=== PATIENT | female | born 1980 | race Caucasian/White ===

== ENCOUNTER 2018-03-02 09:45 | Emergency (ER) | payer MEDICAID ==
[~2018-03-02] VITALS: Ht 170.2 cm; Wt 99.6 kg
[2018-03-02 09:47] VITALS: BP 109/77
[2018-03-02] MEDS ORDERED: IBUP-1984 PO (11:07)
[2018-03-02] MEDS ORDERED: HYDR-3564 PO (11:07)
== END 2018-03-02 11:19 | disposition home or self-care (01) ==
LOC: ER 09:46
DX: M25.511 Pain in right shoulder (principal); F17.200 Nicotine dependence, unspecified, uncomplicated; Z98.890 Other specified postprocedural states; Z88.0 Allergy status to penicillin
CPT/HCPCS: 73030; 99284

== ENCOUNTER 2018-06-12 09:43 | Emergency (ER) | payer MEDICAID ==
[~2018-06-12] VITALS: Ht 170.2 cm; Wt 44.6 kg
[2018-06-12 09:46] VITALS: BP 111/81
[2018-06-12] MEDS ORDERED: IBUP-1985 PO (10:11)
== END 2018-06-12 10:23 | disposition home or self-care (01) ==
LOC: ER 09:44
DX: K08.89 Other specified disorders of teeth and supporting structures (principal); Z98.890 Other specified postprocedural states; Z88.0 Allergy status to penicillin; Z79.899 Other long term (current) drug therapy
CPT/HCPCS: 99282

== ENCOUNTER 2018-09-30 04:30 | Emergency (ER) | payer MEDICAID ==
[~2018-09-30] VITALS: Ht 172.7 cm; Wt 53.8 kg
[~2018-09-30 04:30] MED LIST: IBUP-1985 PO; ONDA4TAB6 PO
[2018-09-30] MEDS ORDERED: morphine 4 MG/ML inj SYRINge IV ONE (05:00)
[2018-09-30] MEDS ORDERED: ondansetron/PF 4mg/2ml inj IV ONE (05:00)
[2018-09-30] MEDS ORDERED: normal saline 1000ML IV soln IVB ONE ×2 (05:00→06:50)
[2018-09-30] MEDS ORDERED: iohexol 300mg/ml 100ml inj. ONE (05:51)
[2018-09-30 05:57] LABS: BASOPHILS % (AUTO) 0 % (0-1); EOSINOPHILS % (AUTO) 0 % (0-6); HEMATOCRIT 41.7 % (35.0-45.0); HEMOGLOBIN 14.2 g/dl (12.0-16.0); LYMPHOCYTES % (AUTO) 9.4 % (21-51); MEAN CORPUSCULAR HEMOGLOBIN 32.6 PG (27.0-31.0); MEAN CORPUSCULAR VOLUME 95.8 FL (78-98); MEAN PLATELET VOLUME 8.2 FL (7.4-10.4); MONOCYTES # (AUTO) 0.3 X10'3 (0-0.9); MONOCYTES % (AUTO) 2.7 % (2-12); NEUTROPHILS # (AUTO) 9.3 X10'3 (1.8-7.7); NEUTROPHILS % (AUTO) 87.9 % (42-75); PLATELET COUNT 274 X10'3 (140-440); RED BLOOD COUNT 4.35 X10'6 (4.20-5.60); RED CELL DISTRIBUTION WIDTH 13.1 % (11.5-14.5); WHITE BLOOD COUNT 10.5 X10'3 (4.5-11.0)
[2018-09-30 06:10] LABS: ALANINE AMINOTRANSFERASE 43 U/L (12-78); ALBUMIN 3.9 G/DL (3.4-5.0); ALBUMIN/GLOBULIN RATIO 1.1 (1.1-1.5); ALKALINE PHOSPHATASE 34 IU/L (46-116); ANION GAP 15 (8-16); ASPARTATE AMINO TRANSFERASE 34 U/L (10-37); BILIRUBIN,TOTAL 0.5 MG/DL (0.1-1.0); BLOOD UREA NITROGEN 17 MG/DL (7-18); BUN/CREATININE RATIO 22.7 (6.6-38.0); CALCIUM 9.2 MG/DL (8.5-10.1); CHLORIDE 99 MMOL/L (99-107); CREATININE 0.75 MG/DL (0.40-0.90); GLUCOSE 127 MG/DL (70-104); LIPASE 123 U/L (73-393); POTASSIUM 3.5 MMOL/L (3.5-5.1); SODIUM 135 MMOL/L (135-145); TOTAL CARBON DIOXIDE 21.2 MMOL/L (24-32); TOTAL PROTEIN 7.3 G/DL (6.4-8.2); eGFR 86 ML/MIN
[2018-09-30] MEDS ORDERED: metoclopramide 5 mg/ml inj IV ONE (06:50)
[2018-09-30] MEDS ORDERED: LORazepam 2 mg/ml vial IV ONE (06:50)
[2018-09-30] MEDS ORDERED: diphenhydrAMINE 50 mg/ml inj IV ONE (06:50)
[2018-09-30 08:24] VITALS: BP 96/58
== END 2018-09-30 08:25 | disposition home or self-care (01) ==
LOC: ER 04:31
DX: E86.0 Dehydration (principal); R10.84 Generalized abdominal pain; Z88.0 Allergy status to penicillin; Z79.899 Other long term (current) drug therapy; Z98.890 Other specified postprocedural states
CPT/HCPCS: 36415; 74177; 80053; 83690; 85025; 96374; 96375; 99284; J1200; J2060; J2270; J2405; J2765; J7030; Q9967

== ENCOUNTER 2018-10-05 10:24 | Emergency (ER) | payer MEDICAID ==
[~2018-10-05] VITALS: Ht 170.2 cm; Wt 52.0 kg
[2018-10-05 10:32] VITALS: BP 112/84
[2018-10-05] MEDS ORDERED: CYCL-1 PO (11:18)
== END 2018-10-05 11:40 | disposition home or self-care (01) ==
LOC: ER 10:25
DX: S16.1XXA Strain of muscle, fascia and tendon at neck level, initial encounter (principal); Z88.0 Allergy status to penicillin; X58.XXXA Exposure to other specified factors, initial encounter; Y93.89 Activity, other specified; Y92.89 Other specified places as the place of occurrence of the external cause; Y99.8 Other external cause status
CPT/HCPCS: 99283

== ENCOUNTER 2019-02-09 18:09 | Emergency (ER) | payer MEDICAID ==
[~2019-02-09] VITALS: Ht 170.2 cm; Wt 46.5 kg
[~2019-02-09 18:09] MED LIST changes: +CYCL-1 PO
[2019-02-09 19:26] LABS: BASOPHILS % (AUTO) 0.6 % (0-1); EOSINOPHILS # (AUTO) 0.1 X10'3 (0-0.9); EOSINOPHILS % (AUTO) 1.1 % (0-6); HEMATOCRIT 43.7 % (35.0-45.0); HEMOGLOBIN 14.8 g/dl (12.0-16.0); LYMPHOCYTES # (AUTO) 1.9 X10'3 (1.1-4.8); LYMPHOCYTES % (AUTO) 29.7 % (21-51); MEAN CORPUSCULAR HEMOGLOBIN 32.6 PG (27.0-31.0); MEAN CORPUSCULAR HGB CONC 33.8 g/dL (33.0-36.5); MEAN CORPUSCULAR VOLUME 96.5 FL (78-98); MONOCYTES # (AUTO) 0.4 X10'3 (0-0.9); MONOCYTES % (AUTO) 6.5 % (2-12); NEUTROPHILS % (AUTO) 62.1 % (42-75); PLATELET COUNT 288 X10'3 (140-440); RED BLOOD COUNT 4.53 X10'6 (4.20-5.60); RED CELL DISTRIBUTION WIDTH 13.4 % (11.5-14.5); WHITE BLOOD COUNT 6.4 X10'3 (4.5-11.0)
[2019-02-09 19:46] LABS: ALANINE AMINOTRANSFERASE 18 U/L (12-78); ALBUMIN 4.1 G/DL (3.4-5.0); ALBUMIN/GLOBULIN RATIO 1.2 (1.1-1.5); ALKALINE PHOSPHATASE 32 IU/L (46-116); ANION GAP 9 (8-16); ASPARTATE AMINO TRANSFERASE 14 U/L (10-37); BILIRUBIN,TOTAL 0.4 MG/DL (0.1-1.0); BLOOD UREA NITROGEN 11 MG/DL (7-18); BUN/CREATININE RATIO 13.4 (6.6-38.0); CALCIUM 9.1 MG/DL (8.5-10.1); CHLORIDE 105 MMOL/L (99-107); CREATININE 0.82 MG/DL (0.40-0.90); GLUCOSE 102 MG/DL (70-104); POTASSIUM 3.7 MMOL/L (3.5-5.1); SODIUM 140 MMOL/L (135-145); TOTAL CARBON DIOXIDE 26.2 MMOL/L (24-32); TOTAL PROTEIN 7.6 G/DL (6.4-8.2); eGFR 78 ML/MIN
[2019-02-09] MEDS ORDERED: normal saline 1000ML IV soln IVB ONE (19:50)
[2019-02-09] MEDS ORDERED: LORazepam 2 mg/ml vial IV ONE (19:50)
[2019-02-09] MEDS ORDERED: pantoprazole 40 MG vial IV ONE (19:50)
[2019-02-09] MEDS ORDERED: ondansetron/PF 4mg/2ml inj IV ONE (19:50)
[2019-02-09] MEDS: morphine 2 MG/ML inj. syringe IV PRN ×2 (20:00→21:41)
[2019-02-09 20:08] LABS: URINE HCG NEGATIVE (NEG)
[2019-02-09 20:10] LABS: CLARITY,URINE SLIGHTLY CLOUDY (Clear); COLOR,URINE YELLOW (Yellow); GLUCOSE, URINE NEGATIVE (Neg); KETONES,URINE NEGATIVE (Neg); LEUKOCYTE ESTERASE ,URINE SMALL (Neg); NITRITES, URINE NEGATIVE (Neg); OCCULT BLOOD,URINE NEGATIVE (Neg); PROTEIN,URINE NEGATIVE (Neg); UROBILINOGEN,URINE 0.2 E.U/dL (0.2-1.0)
[2019-02-09 20:11] LABS: UA COLLECTION TYPE NON-SPECIFIED
[2019-02-09 20:21] LABS: LIPASE 128 U/L (73-393)
[2019-02-09 20:30] LABS: BACTERIA,URINE 2+ /HPF (Neg); RBC,URINE NONE SEEN /HPF (0-2); SQUAMOUS EPITHELIAL CELL,UR MANY /LPF (FEW); WBC CLUMPS,URINE FEW /HPF (NEGATIVE)
[2019-02-09] MEDS ORDERED: iohexol 300mg/ml 100ml inj. ONE (20:53)
[2019-02-09] MEDS ORDERED: ONDA8TAB13 PO (21:47)
[2019-02-09] MEDS ORDERED: PANT-47 PO (21:47)
[2019-02-09 22:09] VITALS: BP 95/55
== END 2019-02-09 22:11 | disposition home or self-care (01) ==
LOC: ER 18:10
DX: R10.13 Epigastric pain (principal); Z88.0 Allergy status to penicillin; Z79.899 Other long term (current) drug therapy; Z98.890 Other specified postprocedural states
CPT/HCPCS: 36415; 74022; 74177; 80053; 81001; 81025; 83690; 85025; 85610; 96374; 96375; 99284; C9113; J2060; J2270; J2405; J7030; Q9967